=== PATIENT | female | born 1985 | race Caucasian/White ===

== ENCOUNTER → 2017-05-24 13:39 | Outpatient (CLI) | payer OTHER, SELFPAY | PROVIDERS: Family Provider Family Medicine; PCP Family Medicine; Visit Provider Internal Medicine Cardiovascular Disease | DX: I47.2 Ventricular tachycardia (principal); R00.2 Palpitations | CPT/HCPCS: 93225; 93226 ==

== ENCOUNTER 2017-06-06 13:23 | Emergency (ER) | payer OTHER, SELFPAY ==
[2017-06-06 13:25] VITALS: BP 157/95; PULSE 100; RESP 18; TEMP 36.8; O2SAT 100; BMI 29.0
--- NOTE | 2017-06-06 13:53 | RAD_ITS ---
STUDY: X-RAY CHEST REASON FOR EXAM: Female, 32 years old. Chest tightness TECHNIQUE: Single AP portable view of the chest. COMPARISON: 01/28/2013. FINDINGS: The lungs are clear and expanded. There is no demonstrated pleural abnormality. Normal size heart. Normal mediastinum and sharath. Normal visualized pulmonary arteries. Normal visualized aortic arch and descending thoracic aorta. Normal visualized thoracic spine. Normal visualized ribs, clavicles, and shoulders. There is no demonstrated abnormality of the visualized soft tissue structures of the upper abdomen. RAD/Chest 1 View (Portable) IMPRESSION: Normal x-ray examination of the chest. Electronically Signed: Chriss Wei MD at 14:14 EDT , Service support ,
--- NOTE | 2017-06-06 13:53 | EKG12_ITS ---
Test Reason : CP Blood Pressure : / mmHG Vent. Rate : 093 BPM Atrial Rate : 093 BPM P-R Int : 126 ms QRS Dur : 094 ms QT Int : 352 ms P-R-T Axes : 063 080 045 degrees QTc Int : 437 ms Normal sinus rhythm with sinus arrhythmia Normal ECG Confirmed by DELORES OCHOA ([id number]), story editor JONATHAN HUGGINS ([id number]) on 06/11/2017 2:47:43 PM Referred By: MADDIE Confirmed By:DELORES OCHOA
[2017-06-06] MEDS: Ketorolac 30 MG/ML Syringe IV (13:57)
--- NOTE | 2017-06-06 14:11 | ED.VISSUMM ---
- ER Visit Summary Date of Service: 06/06/17 Chief Complaint: Chest pain History of Present Illness: The patient is a 32 F who states that she is having intermittent second long inches in the center of her chest. She states that she has had some palpitations. She wore a Holter monitor. Review of this report demonstrates the patient had PVCs and a 3 beat run of SVT. Patient states that as she was driving she thinks she might of had a bit of a panic attack because she felt short of breath and found herself gripping the steering wheel hard. She notes she has had a viral URI with cough recently. She notes the chest is nontender to palpation nor is it worse with deep breathing. Physical Examination: Afebrile vital signs are stable Gen: Well-nourished well-developed Head: Normocephalic atraumatic Eyes: Perrl EOMI ENT: TMs clear no rhinorrhea moist mucous membranes Neck: Supple no lymphadenopathy no JVD nontender CVS: Regular rate rhythm no murmurs normal S1-S2 Respiratory: No distress clear to auscultation bilaterally chest nontender Abdomen: Soft nontender nondistended normal bowel sounds no masses Back: Nontender Extremity: Nontender no edema Skin: Normal color no rash Neuro: alert orientated ?3 CN II-XII intact normal strength sensation reflexes gait cerebellar Psych: Normal affect normal mood Test Results: EKG is a sinus rhythm at a rate of 93. Chest x-ray is negative. Emergency Department Course and Treatment: She was observed on the monitor. I believe that this is noncardiac and most likely chest wall related. Patient will be discharged home instructions for anti-inflammatory return if worsening. Impression: 1. Chest pain This note was generated with [employer] dictation software. It may contain incorrect words, spelling, and punctuation that were not noted in review of the chart prior to signing ED Disposition - Plan for ED Patient: Disposition: Home or Assisted Living Chief Complaint: Chest Pain Instructions: ED Chest Pain Atypical Unkn Cause Referrals: Khoa Carr III, MD [Primary Care Provider] - 1 Week if not improving
[2017-06-06 14:52] VITALS: BP 133/78; PULSE 77; RESP 16; O2SAT 97
[2017-06-06 15:01] VITALS: BP 120/66; PULSE 80; RESP 13; O2SAT 95
== END 2017-06-06 15:27 | disposition home or self-care (01) ==
PROVIDERS: Emergency Provider Emergency Medicine; Family Provider Family Medicine; PCP Family Medicine
DX: R07.9 Chest pain, unspecified (principal); R00.2 Palpitations; Z72.0 Tobacco use
CPT/HCPCS: 71045; 93005; 96374; 99283; A4216

== ENCOUNTER → 2017-07-26 15:29 | Outpatient (CLI) | payer OTHER, SELFPAY | PROVIDERS: Family Provider Family Medicine; PCP Family Medicine; Visit Provider Physician Assistant | DX: J02.9 Acute pharyngitis, unspecified (principal) | CPT/HCPCS: 87081 ==

== ENCOUNTER → 2017-09-05 17:57 | Outpatient (CLI) | payer OTHER, SELFPAY ==
[2017-09-05 17:59] LABS: Bacteria 0 SEEN /hpf (None Seen); Mucous, Urine 0 SEEN /hpf (<or=2+); Red Blood Cells-Urine 0 SEEN /hpf (0-5)
[2017-09-05 18:48] LABS: Color, Urine Yellow (Yellow); Glucose, Dipstick Normal (Normal); Ketone-Dipstick Negative (Negative); Leukocyte Esterase-Dipstick 100 /ul (Negative); Nitrite-Dipstick Negative (Negative); Occult Blood-Urine 150 /ul (Negative); Protein-Dipstick Negative (Negative); Specific Gravity, Urine 1.005 (1.002-1.030); Urine Bilirubin Dipstick Negative (Negative); Urine Clarity Clear (Clear); Urine Urobilinogen Normal (Normal)
[2017-09-05 18:57] LABS: Squamous Epithelial Cells - UA 0-5 SEEN /hpf (5-10); White Blood Cells 5-10 SEEN /hpf (0-5)
== END ==
PROVIDERS: Family Provider Family Medicine; PCP Family Medicine; Visit Provider Physician Assistant Medical
DX: R30.0 Dysuria (principal)
CPT/HCPCS: 81001; 87086; 87088; 87186

== ENCOUNTER → 2017-09-26 18:26 | Outpatient (CLI) | payer OTHER, SELFPAY ==
[2017-10-02 11:35] LABS: HPV APTIMA, High Risk Negative (Negative)
== END ==
PROVIDERS: Family Provider Family Medicine; PCP Family Medicine; Visit Provider Obstetrics & Gynecology
DX: Z12.4 Encounter for screening for malignant neoplasm of cervix (principal)
CPT/HCPCS: 88175; G0145

== ENCOUNTER → 2017-11-05 15:00 | Outpatient (CLI) | payer OTHER, SELFPAY ==
--- NOTE | 2017-11-05 15:04 | US_ITS ---
STUDY: RENAL ULTRASOUND - COMPLETE REASON FOR EXAM: Female, 32 years old. Recurrent uti TECHNIQUE: Ultrasound evaluation of the kidneys was performed with real-time and static simeon-scale imaging. COMPARISON: CT Abdomen/Pelvis Jan 19 2014 6:56am FINDINGS: RIGHT KIDNEY: Normal location of the right kidney, which is normal in size. The right kidney measures 14.1x5.2x6.1 cm. There is a normal cortex of the right kidney. The renal cortex measures 2.2 cm. There is no right renal mass or cyst. There are no right renal calculi. There is an extra-renal pelvis of the right kidney. There is no distention of the renal calyces. The diameter of the renal pelvis is 1.71cm. DISTAL RIGHT URETER: There is non-visualization of the distal right ureter. There is no demonstrated right ureterovesical junction calculus. There is a visualized right ureteral jet. LEFT KIDNEY: Normal location of the left kidney, which is normal in size. The left kidney measures 13.7x5.9x4.8 cm. There is a normal cortex of the left kidney. The renal cortex measures 1.2 cm. There is no left renal mass or cyst. There are no left renal calculi. There is an extra-renal pelvis of the left kidney. There is no distention of the renal calyces. The diameter of the renal pelvis is 1.07cm. DISTAL LEFT URETER: There is non-visualization of the distal left ureter. There is no demonstrated left ureterovesical junction calculus. There is a visualized left ureteral jet. BLADDER: The distended urinary bladder has a volume of 360 ml. The empty urinary bladder has a volume of 23 ml. There is a normal wall thickness of the distended urinary bladder. There is no demonstrated mass within the urinary bladder. There are no demonstrated bladder calculi. US/Kidney and Bladder IMPRESSION: There is an extra-renal pelvis of the left and right kidney. There is no distention of the renal calyces. Electronically Signed: Satya Sky MD at 16:51 EDT , Service support ,
== END ==
PROVIDERS: Family Provider Family Medicine; PCP Family Medicine; Visit Provider Urology
DX: N39.0 Urinary tract infection, site not specified (principal)
CPT/HCPCS: 76770

== ENCOUNTER → 2018-08-29 | Outpatient (CLI) | payer OTHER, SELFPAY ==
[2018-08-15 11:58] VITALS: BMI 28.0
--- NOTE | 2018-08-29 14:48 | ECHOD_ITS ---
Reason For Study: SOB Procedure This was a 2D Doppler, Color Flow transthoracic echocardiogram. Exam performed in department. Left Ventricle Normal LV size. Mid cavitary false tendon noted. Left ventricular systolic function is normal. The estimated ejection fraction is 65 %. Normal diastology for age. No regional wall motion abnormalities noted. Right Ventricle Normal RV size. Normal systolic function. Atria Normal left atrium. Normal right atrium. Mitral Valve Normal mitral valve. Tricuspid Valve Normal tricuspid valve. Aortic Valve Normal aortic valve. Trisinus/trileaflet aortic valve. Pulmonic Valve Normal pulmonic valve. Great Vessels Normal aortic root. The pulmonary artery is normal size. Normal inferior vena cava. Pericardium/Pleural No pericardial effusion. MMode/2D Measurements & Calculations LVIDd: 4.4 cm IVSd: 0.76 cm Ao root diam: 2.9 cm LVIDs: 2.8 cm LVPWd: 0.95 cm RVDd: 3.1 cm FS: 35.7 % LAV(MOD-bp): 38.2 ml LVAd ap4: 34.9 cm2 SV(MOD-sp4): 72.3 ml LAV(MOD-bp) Indexed: 20.3 ml/m2 EDV(MOD-sp4): 116.2 ml LAV(MOD-sp2): 43.0 ml EDV(sp4-el): 120.8 ml LAV(MOD-sp4): 33.3 ml LVAs ap4: 19.1 cm2 ESV(MOD-sp4): 43.9 ml ESV(sp4-el): 44.2 ml EF(MOD-sp4): 62.2 % EF(sp4-el): 63.4 % SV(sp4-el): 76.6 ml LA A4 area: 14.2 cm2 LA dimension(2D): 3.2 cm RA A4 area: 12.9 cm2 Time Measurements MV dec time: 0.30 sec Doppler Measurements & Calculations MV E max milton: 92.5 cm/sec Lat Peak E' Milton: 20.8 cm/sec Med Peak E' Milton: 15.0 cm/sec MV A max milton: 42.3 cm/sec E/E' lat: 4.5 E/E' med: 6.2 MV E/A: 2.2 Ao V2 max: 143.5 cm/sec LV V1 max: 148.8 cm/sec PA V2 max: 114.0 cm/sec Ao max P.2 mmHg LV V1 max P.9 mmHg TR max milton: 241.9 cm/sec TR max P.4 mmHg Interpretation Summary Normal LV size. Left ventricular systolic function is normal. The estimated ejection fraction is 65 %. Normal diastology for age. Structurally normal valves. Ordering Physician: MARC HOOD Referring Physician: KRUNAL HOOD Performed By: Blanche Barnes RDCS
== END | disposition home or self-care (01) ==
PROVIDERS: Family Provider Family Medicine; PCP Family Medicine
DX: R06.02 Shortness of breath (principal)
CPT/HCPCS: 93306

== ENCOUNTER → 2018-10-07 | Outpatient (CLI) | payer OTHER, SELFPAY ==
[2018-09-30 14:54] VITALS: BMI 28.0
[2018-10-07 12:42] LABS: Absolute Lymphocyte Count 4.14 X10^3/uL (0.83-4.51); Absolute Neutrophil Count 4.5 X10^3/uL (2.0-7.7); Basophil# 0.06 X10^3/uL; Basophil% 0.6 % (0-1); Eosinophil# 0.27 X10^3/uL; Eosinophils% 2.7 % (0-5); Hematocrit 44.2 % (37-47); Hemoglobin 14.3 g/dL (12.0-15.0); Lymphocyte # 4.14 X10^3/ul (4.0); Lymphocyte % 42.2 % (19-41); Mean Corp Hgb Conc 32.4 g/dL (32-36); Mean Corpuscular Hgb 27.6 pg (27.0-32.0); Mean Corpuscular Volume 85.2 fL (81-99); Mean Platelet Vol. 10.2 fl (6.2-12.0); Monocyte# 0.77 X10^3/uL; Monocyte% 7.8 % (0-10); NRBC Flagged by Analyzer 0 % (0-5); Neutrophil # 4.54 X10^3/uL (2.7-7.7); Neutrophil % 46.3 % (47-70); Platelet Count 379 K/mm3 (150-450); RBC Distribution Width CV 13.2 % (11.6-14.6); RBC Distribution Width SD 40.6 fl (35.1-43.9); Red Blood Count 5.19 M/mm3 (4.2-5.4); White Blood Count 9.8 K/mm3 (4.4-11.0)
[2018-10-07 13:17] LABS: T4 Free Direct 0.99 ng/dL (0.76-1.46); Thyroid Stim Hormone (TSH) 0.47 uIU/mL (0.358-3.74)
== END | disposition home or self-care (01) ==
LOC: LAB 11:57
PROVIDERS: Family Provider Family Medicine; PCP Family Medicine; Referring Provider Obstetrics & Gynecology; Visit Provider Obstetrics & Gynecology
DX: N93.9 Abnormal uterine and vaginal bleeding, unspecified (principal)
CPT/HCPCS: 36415; 84439; 84443; 85025

== ENCOUNTER → 2019-01-09 13:28 | Outpatient (CLI) | payer OTHER, SELFPAY ==
[2018-09-30 14:54] VITALS: BMI 28.0
== END ==
PROVIDERS: Family Provider Family Medicine; PCP Family Medicine; Referring Provider Urology; Visit Provider Urology
DX: N39.0 Urinary tract infection, site not specified (principal); R30.0 Dysuria
CPT/HCPCS: 87086; 87088; 87186

== ENCOUNTER → 2020-08-05 06:09 | Outpatient (CLI) | payer OTHER, SELFPAY ==
[2020-03-10 08:22] VITALS: BMI 28.8
[2020-08-05 08:16] LABS: Thyroid Stim Hormone (TSH) 1.17 uIU/mL (0.358-3.74)
[2020-08-05 10:15] LABS: T3 Total - Triiodothyronine 1.19 ng/mL (0.6-1.81); Vitamin D,25 Hydroxy 28.8 ng/mL
== END ==
PROVIDERS: PCP Nurse Practitioner Family; Referring Provider Nurse Practitioner Family; Visit Provider Nurse Practitioner Family
DX: R53.83 Other fatigue (principal)
CPT/HCPCS: 36415; 82306; 84439; 84443; 84480

== ENCOUNTER → 2021-08-30 | Outpatient (CLI) | payer OTHER, SELFPAY ==
--- NOTE | 2021-08-30 07:10 | BI_ITS ---
MAMMOGRAPHY - BILATERAL SCREENING REASON FOR EXAM: Female, 36 years old. Routine annual screening examination. PERTINENT HISTORY: Mother with breast cancer. TECHNIQUE: Digital bilateral breast marc (3D mammographic acquisition) in the CC and MLO projections. 2-D mediolateral oblique (MLO) and craniocaudad (CC) views of both breasts were obtained. CAD: Full Field Digital Mammography with Computer Added Detection was performed. COMPARISON: None. Baseline examination. FINDINGS: Breast Composition: The breasts are heterogeneously dense, which may obscure small masses. There are no dominant masses or suspicious calcifications. Small benign appearing bilateral axillary lymph nodes. No other significant abnormalities are identified. There has been no significant change since the prior study. BI/SCRN MAMM (CAD)W/MARC BILAT IMPRESSION: Stable bilateral screening mammogram. Yearly follow-up mammogram recommended. (A) ASSESSMENT CATEGORY: BIRADS Category 2: Benign. A letter regarding these results will be sent to the patient by the facility within 30 days. Approximately 10% of breast cancers are not detected by mammography. A normal mammogram should not delay biopsy of a clinically suspicious abnormality. [id number] Electronically Signed: Gavin Díaz MD at 9:40 EDT ,
== END | disposition home or self-care (01) ==
LOC: OPBI 07:08
PROVIDERS: PCP Nurse Practitioner Family; Visit Provider Nurse Practitioner Family
DX: Z12.31 Encounter for screening mammogram for malignant neoplasm of breast (principal)
CPT/HCPCS: 77063; 77067

== ENCOUNTER → 2022-03-22 | Outpatient (CLI) | payer OTHER, SELFPAY ==
[2022-03-30 17:23] LABS: HPV APTIMA, High Risk Negative (Negative)
== END | disposition home or self-care (01) ==
PROVIDERS: PCP Internal Medicine; Referring Provider Obstetrics & Gynecology; Visit Provider Obstetrics & Gynecology
DX: Z12.4 Encounter for screening for malignant neoplasm of cervix (principal)
CPT/HCPCS: 87624; 88175; G0145

== ENCOUNTER → 2022-04-11 | Outpatient (CLI) | payer OTHER, SELFPAY ==
[2022-04-11 12:44] LABS: Vitamin D,25 Hydroxy 82.7 ng/mL
== END | disposition home or self-care (01) ==
PROVIDERS: PCP Internal Medicine; Referring Provider Internal Medicine; Visit Provider Internal Medicine
DX: E55.9 Vitamin D deficiency, unspecified (principal)
CPT/HCPCS: 36415; 82306

== ENCOUNTER → 2022-06-21 | Outpatient (CLI) | payer OTHER, SELFPAY ==
--- NOTE | 2022-06-21 12:50 | US_ITS ---
STUDY: ULTRASOUND OF THE FEMALE PELVIS - COMPLETE REASON FOR EXAM: Female, 37 years old. Abnormal bleeding LMP: May 29, 2022. TECHNIQUE: Transabdominal and Transvaginal TECHNICAL QUALITY: Adequate. COMPARISON: None. FINDINGS: The uterus is anteverted and is in a midline position. The uterus measures 11.4 cm x 6.7 cm x 5.1 cm. There is a Nabothian cyst of the cervix. The endometrium measures 8 mm in thickness, and is heterogeneous (striated). There is no demonstrated endometrial mass. Heterogeneous appearance of the uterus although no focal fibroids are seen. This is suggestive of fibroid change. I.U.D. - The patient does not have an I.U.D. The right ovary is visualized. The right ovary measures 5.1 cm x 3.5 cm x 3.5 cm. There is no right ovarian cyst or ovarian mass. There is no visualized right adnexal mass or complex lesion. There is normal arterial and normal venous vascularity. The left ovary is visualized. The left ovary measures 1.7 cm Bard 2.1 cm x 1.8 cm. There is no left ovarian cyst or ovarian mass. There is no visualized left adnexal mass or complex lesion. There is normal arterial and normal venous vascularity. There is no fluid in the cul-de-sac. The pre void volume of the bladder was 477 ml. US/Pelvic w/ Transvaginal IMPRESSION: Normal female pelvis. Electronically Signed: Gavin Díaz MD at 15:40 EDT ,
== END | disposition home or self-care (01) ==
LOC: US 12:49
PROVIDERS: PCP Internal Medicine; Referring Provider Obstetrics & Gynecology; Visit Provider Obstetrics & Gynecology
DX: N93.9 Abnormal uterine and vaginal bleeding, unspecified (principal)
CPT/HCPCS: 76830; 76856

== ENCOUNTER → 2022-09-04 | Outpatient (CLI) | payer OTHER, SELFPAY ==
--- NOTE | 2022-09-04 07:29 | BI_ITS ---
MAMMOGRAPHY - BILATERAL SCREENING REASON FOR EXAM: Female, 37 years old. Routine annual screening examination. PERTINENT HISTORY: Mother with breast cancer. TECHNIQUE: Digital bilateral breast marc (3D mammographic acquisition) in the CC and MLO projections. 2-D mediolateral oblique (MLO) and craniocaudad (CC) views of both breasts were obtained. CAD: Full Field Digital Mammography with Computer Added Detection was performed. COMPARISON: Comparison is made with prior study dated August 30, 2021. FINDINGS: Breast Composition: The breasts are heterogeneously dense, which may obscure small masses. There are no dominant masses or suspicious calcifications. Stable small benign-appearing bilateral axillary lymph nodes. No other significant abnormalities are identified. There has been no significant change since the prior study. BI/SCRN MAMM (CAD)W/MARC BILAT IMPRESSION: Stable bilateral screening mammogram. Yearly follow-up mammogram recommended. (A) ASSESSMENT CATEGORY: BIRADS Category 2: Benign. A letter regarding these results will be sent to the patient by the facility within 30 days. Approximately 10% of breast cancers are not detected by mammography. A normal mammogram should not delay biopsy of a clinically suspicious abnormality. [id number] Electronically Signed: Gavin Díaz MD at 9:22 EDT ,
== END | disposition home or self-care (01) ==
LOC: OPBI 07:28
PROVIDERS: PCP Internal Medicine; Referring Provider Obstetrics & Gynecology; Visit Provider Obstetrics & Gynecology
DX: Z12.31 Encounter for screening mammogram for malignant neoplasm of breast (principal); Z80.3 Family history of malignant neoplasm of breast
CPT/HCPCS: 77063; 77067

== ENCOUNTER → 2022-09-26 | Outpatient (CLI) | payer OTHER, SELFPAY ==
--- NOTE | 2022-09-26 14:05 | EMB_PTH ---
PATIENT: HAMZAH FLOWER LOC: [facility] U#:[id number] AGE/SX: 37/F ROOM: RE09/26/[address]: SOLEDAD Evans : 1985 BED: DIS: 09/26/2022 SPEC #: [id number] RECD: 09/26/22 16:46 STATUS: PHILIP REDestinee #: [id number] MAGGIE: 09/26/22 14:[address]: Nadira Peck NP DEPT: SURGICAL PATHOLOGY RECD BY: Ana Paula Benjamin ENTERED: 09/27/22 07:30 SP TYPE: ENDOM BX/C ALFREDO DR: Dr. Marilin Del Valle MD Tissues: Endometrium, NOS Procedures: Surgery Specimen Level IV HEADER OPERATION: Endometrial biopsy PRE-OP DIAGNOSIS: Abnormal uterine bleeding TISSUE SUBMITTED: Endometrial tissue MICROSCOPIC DIAGNOSIS Endometrium, biopsy: Proliferative endometrium with minimal disorder and focal glandular breakdown. AM:reinaldo 09/28/2022 MICROSCOPIC DESCRIPTION Slides are reviewed. GROSS DESCRIPTION Received is one container labeled with the patient's name and not further designated. The specimen consists of multiple irregular fragments of light hicks soft tissue that in aggregate measure 3.0 x 2.0 x 0.1 cm. The specimen is totally submitted in one cassette. / AM:reinaldo 09/27/2022 TC:5 CPT: 48512
== END | disposition home or self-care (01) ==
LOC: LABSPEC 16:50
PROVIDERS: PCP Internal Medicine; Referring Provider Nurse Practitioner Women's Health; Visit Provider Nurse Practitioner Women's Health
DX: N93.9 Abnormal uterine and vaginal bleeding, unspecified (principal)
CPT/HCPCS: 88305

== ENCOUNTER → 2023-07-12 | Outpatient (CLI) | payer OTHER, SELFPAY ==
[2023-07-12 17:04] LABS: Absolute Lymphocyte Count 3.52 X10^3/uL (0.83-4.51); Absolute Neutrophil Count 5.7 X10^3/uL (2.0-7.7); Basophil# 0.06 X10^3/uL; Basophil% 0.6 % (0-1); Eosinophil# 0.21 X10^3/uL; Hematocrit 45.5 % (37-47); Hemoglobin 14.6 g/dL (12.0-15.0); Lymphocyte # 3.52 X10^3/ul (0.83-4.51); Lymphocyte % 33.8 % (19-41); Mean Corp Hgb Conc 32.1 g/dL (32-36); Mean Corpuscular Hgb 26.7 pg (27.0-32.0); Mean Corpuscular Volume 83.2 fL (81-99); Mean Platelet Vol. 9.8 fl (6.2-12.0); Monocyte# 0.88 X10^3/uL; Monocyte% 8.4 % (0-10); NRBC Flagged by Analyzer 0 % (0-5); Neutrophil # 5.72 X10^3/uL (2.7-7.7); Neutrophil % 54.9 % (47-70); Platelet Count 384 K/mm3 (150-450); RBC Distribution Width CV 12.8 % (11.6-14.6); RBC Distribution Width SD 38.6 fl (35.1-43.9); Red Blood Count 5.47 M/mm3 (4.2-5.4); White Blood Count 10.4 K/mm3 (4.4-11.0)
[2023-07-12 17:16] LABS: Prothrombin Time (Protime)PT. 12.8 SECONDS (11.7-14.9)
[2023-07-12 17:28] LABS: Erythrocyte Sedimentation Rate 7 mm/hr (0-30)
[2023-07-12 17:32] LABS: Amylase 50 U/L (25-115); CRP < 2.90 mg/L (0.0-3.0); Lipase 47 U/L (13-75)
[2023-07-16 14:11] LABS: Alpha-1-Globulins 0.3 g/dL (0.0-0.4); Alpha-2-Globulins 0.8 g/dL (0.4-1.0); Cytoplasmic Ab (C-ANCA) <1:20 titer (Neg:<1:20); Endomysial Antibody IgA Negative (Negative); Immunoglobulin A 89 mg/dL (87-352); Immunoglobulin G 1081 mg/dL (586-1602); Immunoglobulin M 137 mg/dL (26-217); PROEL- TOTAL PROTEIN 7.2 g/dL (6.0-8.5); Perinuclear Ab (P-ANCA) <1:20 titer (Neg:<1:20); t-Transglutaminase IgA <2 U/mL (0-3)
[2023-07-18 00:07] LABS: Anti-Centromere B Ab <0.2 AI (0.0-0.9); Anti-Chromatin <0.2 AI (0.0-0.9); Anti-Jo <0.2 AI (0.0-0.9); Anti-Scleroderma-70 AB <0.2 AI (0.0-0.9); Anti-dsDNA Ab <1 IU/mL (0-9); Beef <0.10 kU/L (Class 0); Chocolate <0.10 kU/L (Class 0); Codfish <0.10 kU/L (Class 0); Corn <0.10 kU/L (Class 0); Egg, Whole <0.10 kU/L (Class 0); Milk (Cow) <0.10 kU/L (Class 0); Mussels <0.10 kU/L (Class 0); Peanut <0.10 kU/L (Class 0); Pork <0.10 kU/L (Class 0); RNP Ab <0.2 AI (0.0-0.9); SJOGREN'S Anti-SS-A test < 0.2 AI (0.0-0.9); SJOGREN'S Anti-SS-B test < 0.2 AI (0.0-0.9); Salmon <0.10 kU/L (Class 0); Shrimp <0.10 kU/L (Class 0); Smith Ab <0.2 AI (0.0-0.9); Soybean <0.10 kU/L (Class 0); Tuna <0.10 kU/L (Class 0); Wheat <0.10 kU/L (Class 0)
== END | disposition home or self-care (01) ==
LOC: LAB 16:19
PROVIDERS: PCP Internal Medicine; Referring Provider Internal Medicine Gastroenterology; Visit Provider Internal Medicine Gastroenterology
DX: R10.9 Unspecified abdominal pain (principal)
CPT/HCPCS: 36415; 82150; 82784; 83516; 83690; 84165; 85025; 85610; 85652; 86003; 86005; 86140; 86225; 86235; 86255; 86256; 86334

== ENCOUNTER 2023-07-23 11:51 | Day surgery (SDC) | payer OTHER, SELFPAY ==
--- NOTE | 2023-07-23 | IMM_PTH ---
PATIENT: HAMZAH FLOWER LOC: [facility] U#:[id number] AGE/SX: 38/F ROOM: RE07/23/[address]: Dr. Michael Fox DO : 1985 BED: DIS: 07/23/2023 SPEC #: [id number] RECD: 07/25/23 12:04 STATUS: PHILIP REDestinee #: [id number] MAGGIE: 07/23/23 00:[address]: Michael Fox DEPT: IMMUNOHISTOCHEMISTRY RECD BY: Barrington Carpenter ENTERED: 07/25/23 12:04 SP TYPE: IMMUNO OTHR DR: Dr. Marilin Del Valle MD Tissues: Pancreas, NOS Procedures: P53 (initial) KI-67 (add) PHYSICIAN & INSTITUTION [place] [id number] SPECIMEN INFORMATION: Tissue Source: Pancreatic rest biopsy Clinical Info: Abdominal pain Specimen Number: [id number] CPT code: 74054,13998 METHODOLOGY: Deparaffinized sections of prefer/formalin-fixed tissue or PAP/DQ stained slides are incubated with monoclonal/polyclonal antibodies/oligonucleotide probes. Localization is made via biotin free immunoperoxidase method. Appropriate controls are performed and reacted as expected. Results on target cell population are indicated in the following table: RESULTS: ANTIBODY / CLONE RESULT P53 (DO-7) negative, null pattern Ki-67 (30-9) positive, low These tests were developed and their performance characteristics determined by [facility]. They may not have been cleared or approved by the U.S. Food and Drug Administration. The FDA has determined that such clearance or approval is not necessary. The above immunohistochemical/dualISH markers are ordered and reviewed by the Pathologist. INTERPRETATION: Pancreatic rest region, biopsy: No evidence of dysplasia. JULIO/ 07/26/2023
[2023-07-23 12:22] VITALS: BP 123/61; PULSE 71; RESP 16; TEMP 36.8; O2SAT 100; BMI 30.6
[2023-07-23] MEDS: Lactated Ringers 1,000 ML 15 ML IV (12:31)
--- NOTE | 2023-07-23 12:40 | NURSING ---
PT REFUSING URINE TEST AT THIS TIME, STATES HAD VASECTOMY. ORDER CANCELLED
--- NOTE | 2023-07-23 13:00 | EGD_PTH ---
PATIENT: HAMZAH FLOWER LOC: [facility] U#:[id number] AGE/SX: 38/F ROOM: RE07/23/[address]: Dr. Michael Fox DO : 1985 BED: DIS: 07/23/2023 SPEC #: [id number] RECD: 07/23/23 17:28 STATUS: PHILIP SALLIE #: [id number] MAGGIE: 07/23/23 13:[address]: Michael Fox DEPT: SURGICAL PATHOLOGY RECD BY: Ana Paula Benjamin ENTERED: 07/24/23 07:51 SP TYPE: EGD BIOPSY [facility] DR: Dr. Marilin Del Valle MD Tissues: Pancreas, NOS Procedures: Special Stain Group I Surgery Specimen Level IV Alcian Blue/PAS (control) HEADER OPERATION: EGD with biopsy PRE-OP DIAGNOSIS: Abdominal pain TISSUE SUBMITTED: Pancreatic rest biopsy MICROSCOPIC DIAGNOSIS Pancreatic rest, biopsy: Fragments of gastric mucosa with mild chronic inflammation. Focal intestinal metaplasia. No evidence of dysplasia. See comment. / 07/25/2023 COMMENT Immunohistochemistry ([id number]) for P53 and Ki-67 will be performed and results will be reported separately. Alcian blue/PAS stain with matched control supports the above diagnosis. MICROSCOPIC DESCRIPTION Slides are reviewed. GROSS DESCRIPTION Received in fixative is one container labeled with the patient's name and designated Pancreatic rest biopsy. The specimen consists of two irregular fragments of light hicks soft tissue that in aggregate measure 0.7 x 0.5 x 0.1 cm. The specimen is totally submitted in one cassette. / 07/24/2023 TC:3 CPT:12085
--- NOTE | 2023-07-23 13:30 | PCM.HP.BLA ---
History and Physical Date of Admission: 07/23/23 38 F who presents to the office today for initial consult. *BGI established 5.31.24 pt reports that for a few months she was experiencing a burning sensation in the pit of her stomach when she would drink alcohol or eat spicy food. Her PCP put her on Pantoprazole 40mg daily and has since noticed an improvement in symptoms. ROS Const Constitutional: No fatigue, fever(s) or weight change ENT ENT: No difficulty swallowing Gastro GI: Positive for bloating, heartburn and excessive flatus; No abdominal pain, belching, change in bowel habits, change in stool character, coffee ground emesis, constipation, cramping, diarrhea, difficulty swallowing, feeling full early, incontinent of stools, Vomiting blood/hematemesis, Blood in stool, loose stools, Black,tarry stools, nausea/dyspepsia, pain with swallowing, vomiting or other Musc Musculoskeletal: No joint pain Skin Skin: No yellowing of the eye or itchy eyes Psych Psychiatric: No anxiety and No depression Endo Endocrine: No fatigue or weight change Aller/Imm Allergy/Immunologic: No itchy eyes Ziggy/Lymp Hematologic/Lymphatic: No easy bleeding or easy bruising Exam Const General: cooperative and healthy appearing HENNY Head: normal to inspection Ears: hearing grossly normal bilaterally, TM's normal bilaterally and EAC's normal Nose: nasal discharge purulent Face and sinus: sinus tenderness frontal and maxillary Mouth: oral mucosae normal Throat: abnormal tonsil bilaterally erythema and hypertrophy 1+ and postnasal drainage Resp Effort & Inspection: normal respiratory effort Auscultation: Bilateral: Clear to Auscultation Cardio Palpation: normal PMI Rate: regular rate Rhythm: regular rhythm Neuro General: patient alert and CN's II-XI intact bilaterally Psych Appearance: grossly normal Mental Status: mental status grossly normal Assessment and Plan Assessment and Plan (1) Abdominal pain: Status: Acute Plan: The differential diagnosis for her abdominal pain does include peptic ulcer disease, H. pylori associated gastritis, celiac disease, pancreatitis. We will get an upper endoscopy to evaluate upper GI tract. Continue PPI therapy at this time. We will also get some biochemical profile including amylase, lipase, ESR, CRP, celiac disease profile, CBC and food allergy testing. Once we have biochemical workup and imaging along with endoscopy with biopsies hopefully will have a better idea regarding her diagnosis and treatment plan. Orders: Orders CBC W/Diff, Automated Today R10.9 - Unspecified abdominal pain Celiac Disease Profile Today R10.9 - Unspecified abdominal pain AGUSTIN + Protein Elect, Serum Today R10.9 - Unspecified abdominal pain ANCA Today R10.9 - Unspecified abdominal pain Erythrocyte Sed Rate Today R10.9 - Unspecified abdominal pain CRP Today R10.9 - Unspecified abdominal pain Amylase Today R10.9 - Unspecified abdominal pain Lipase Today R10.9 - Unspecified abdominal pain Allergen, Food Profile 14 Today R10.9 - Unspecified abdominal pain Prothrombin Time w/INR Today R10.9 - Unspecified abdominal pain VAMSI Comprehensive Panel Today R10.9 - Unspecified abdominal pain Abdomen/Pelvis WITH Contrast 1 Week R10.9 - Unspecified abdominal pain I have examined the patient and the H&P has been reviewed. There are no clinical changes since date of exam.
[2023-07-23 13:56] VITALS: BP 101/75; BP 123/61; PULSE 71; RESP 16; TEMP 36.3; O2SAT 98
[2023-07-23 14:00] VITALS: BP 107/55; BP 123/61; PULSE 80; RESP 16; O2SAT 99
[2023-07-23 14:05] VITALS: BP 123/61; BP 95/72; PULSE 68; RESP 16; O2SAT 99
--- NOTE | 2023-07-23 14:06 | OP.CCLET_ITS ---
07/23/2023 Marilin Del Valle Md Re : Upper GI endoscopy procedure for Liz Madera Dear Eligio This procedure was performed on Sunday, July 23, 2023. My impressions and recommendations are as follows: Impressions : - Normal esophagus. - A single lesion diagnostic of aberrant pancreas was found in the stomach. Biopsied. - No gross lesions in the first portion of the duodenum. Recommendations : - Discharge patient to home. - Resume previous diet. - Continue present medications. - Await pathology results. My findings are described in the full procedure note, which is enclosed. If I can be of further assistance, please feel free to contact me at . Sincerely, Michael Fox, 07/23/2023 2:06:07 PM This report has been signed electronically.
--- NOTE | 2023-07-23 14:06 | OP.EGD_ITS ---
Patient Name: Liz Madera Procedure Date: 07/23/2023 1:31 PM Date of : 1985 Age: 38 Procedure: Upper GI endoscopy Indications: Epigastric abdominal pain, Functional Dyspepsia Providers: Michael Fox DO Referring MD: Marilin Del Valle Md Medicines: Monitored Anesthesia Care Patient Profile: This is a 38 year old female. Refer to note in patient chart for documentation of history and physical. Patient has symptoms of chronic epigastric abdominal pain. Complications: No immediate complications. Procedure: Pre-Anesthesia Assessment: - Prior to the procedure, a History and Physical was performed, and patient medications and allergies were reviewed. The patient is competent. The risks and benefits of the procedure and the sedation options and risks were discussed with the patient. All questions were answered and informed consent was obtained. Patient identification and proposed procedure were verified by the physician in the pre-procedure area. Mental Status Examination: alert and oriented. Airway Examination: normal oropharyngeal airway and neck mobility. Respiratory Examination: clear to auscultation. CV Examination: normal. Prophylactic Antibiotics: The patient does not require prophylactic antibiotics. Prior Anticoagulants: The patient has taken no anticoagulant or antiplatelet agents. ASA Grade Assessment: III - A patient with severe systemic disease. After reviewing the risks and benefits, the patient was deemed in satisfactory condition to undergo the procedure. The anesthesia plan was to use monitored anesthesia care (MAC). Immediately prior to administration of medications, the patient was re-assessed for adequacy to receive sedatives. The heart rate, respiratory rate, oxygen saturations, blood pressure, adequacy of pulmonary ventilation, and response to care were monitored throughout the procedure. The physical status of the patient was re-assessed after the procedure. After obtaining informed consent, the endoscope was passed under direct vision. Throughout the procedure, the patient's blood pressure, pulse, and oxygen saturations were monitored continuously. The gastroscope was introduced through the mouth, and advanced to the second part of duodenum. The upper GI endoscopy was accomplished without difficulty. The patient tolerated the procedure well. Scope In: 1:39:43 PM Scope Out: 1:44:50 PM Total Procedure Duration Time 0 hours 5 minutes 7 seconds Findings: The examined esophagus was normal. A single umbilicated lesion measuring 9 mm in diameter was found in the gastric antrum. Biopsies were taken with a cold forceps for histology. The pathology specimen was placed into Bottle Number 1. Estimated blood loss was minimal. No gross lesions were noted in the first portion of the duodenum. Impression: - Normal esophagus. - A single lesion diagnostic of aberrant pancreas was found in the stomach. Biopsied. - No gross lesions in the first portion of the duodenum. Recommendation: - Discharge patient to home. - Resume previous diet. - Continue present medications. - Await pathology results. Procedure Code(s): --- Professional --- 87671, Esophagogastroduodenoscopy, flexible, transoral; with biopsy, single or multiple CPT copyright 2021 [employer]. All rights reserved. The codes documented in this report are preliminary and upon label coder review may be revised to meet current compliance requirements. Michael Fox DO 07/23/2023 2:06:07 PM This report has been signed electronically. Number of Addenda: 0 Note Initiated On: 07/23/2023 1:31 PM
[2023-07-23 14:10] VITALS: BP 107/66; BP 123/61; PULSE 65; RESP 16; TEMP 36.1; O2SAT 98
[2023-07-23 14:36] VITALS: BP 123/61
== END 2023-07-23 14:39 | disposition home or self-care (01) ==
LOC: EN 11:51 → AC 11:52
PROVIDERS: PCP Internal Medicine; Referring Provider Internal Medicine; Visit Provider Internal Medicine Gastroenterology
PROC: 0DJ08ZZ Inspection of Upper Intestinal Tract, Via Natural or Artificial Opening Endoscopic (ICD-10-PCS; CPT 43235; principal; 2023-07-23 12:55)
DX: K31.A19 Gastric intestinal metaplasia without dysplasia, unspecified site (principal); Z79.899 Other long term (current) drug therapy; K29.50 Unspecified chronic gastritis without bleeding; K86.89 Other specified diseases of pancreas
CPT/HCPCS: 43239; 88305; 88312; 88341; 88342; J7120; J2405

== ENCOUNTER → 2023-09-06 | Outpatient (CLI) | payer OTHER, SELFPAY ==
--- NOTE | 2023-09-06 07:14 | BI_ITS ---
MAMMOGRAPHY - BILATERAL SCREENING REASON FOR EXAM: Female, 38 years old. Routine annual screening examination. PERTINENT HISTORY: Mother with breast cancer. TECHNIQUE: Digital bilateral breast marc (3D mammographic acquisition) in the CC and MLO projections. 2-D mediolateral oblique (MLO) and craniocaudad (CC) views of both breasts were obtained. CAD: Full Field Digital Mammography with Computer Added Detection was performed. COMPARISON: Comparison is made with prior study dated September 04, 2022 and August 30, 2021. FINDINGS: Breast Composition: The breasts are heterogeneously dense, which may obscure small masses. There are no dominant masses or suspicious calcifications. Stable small bilateral benign-appearing axillary lymph nodes. No other significant abnormalities are identified. There has been no significant change since the prior study. BI/SCRN MAMM (CAD)W/MARC BILAT IMPRESSION: Stable bilateral screening mammogram. Yearly follow-up mammogram recommended. (A) ASSESSMENT CATEGORY: BIRADS Category 2: Benign. A letter regarding these results will be sent to the patient by the facility within 30 days. Approximately 10% of breast cancers are not detected by mammography. A normal mammogram should not delay biopsy of a clinically suspicious abnormality. [id number] Electronically Signed: Gavin Díaz MD at 8:25 EDT ,
== END | disposition home or self-care (01) ==
LOC: OPBI 07:13
PROVIDERS: PCP Internal Medicine; Referring Provider Obstetrics & Gynecology; Visit Provider Obstetrics & Gynecology
DX: Z12.31 Encounter for screening mammogram for malignant neoplasm of breast (principal); Z80.3 Family history of malignant neoplasm of breast
CPT/HCPCS: 77063; 77067

== ENCOUNTER 2024-01-06 09:00 | Outpatient (RCR) | payer OTHER, SELFPAY ==
--- NOTE | 2023-10-25 16:02 | HP.PTEVAL ---
Patient's Visit Information Visit Information Visit Information: HAMZAH FLOWER is a 38 year old F referred to Physical Therapy by LUPILLO Burgess with a diagnosis of BACK PAIN. Date of Evaluation: 10/25/23 Physical Therapist: Loida Liu PT, Cert MDT Visit Plan Frequency: 2-3x /Week Duration: 4-6 Weeks Plan: *NO ULTRASOUND OR ELECTRICAL STIMULATION* AQUATIC THERAPY FOR PAIN RELIEF AND DLS STARTING WITH A NEUTRAL SPINE. ANTERIOR PELVIC TILT POSTURE CORRECTION TRAINING FOR STANDING AND WALKING ACTIVITIES. INSTRUCTION IN APPROPRIATE BODY MECHANICS WITH NEUTRAL SPINE TO AVOID BENDING AND TWISTING WITH WORK ACTIVITIES AND ADL'S. KASIA LE ROM, STRETCHING AND STRENGTHENING. HEP INSTRUCTION. 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 HOBBIES: WALKS OUTSIDE ABOUT 5 DAYS A WEEK 15 TO 30 MIN. Disability: NO Present symptoms: R LOW BACK PAIN WITH INTERMITTENT R ANTERIOR HIP PAIN. Present since: ABOUT 2 WKS AGO Pain Scale: WORST 4/10, LEAST 0/10 Currently: 0/10 Is it getting better, worse or staying the same: GETTING BETTER Commenced as a result of: NO APPARENT REASON BUT WAS CROUCHED DOWN CLEANING THE FLOORS AND REACHING AND ALSO CARRYING LAUNDRY BASKETS UP 2 FLIGHTS OF STAIRS X 3 AT HOME THEN FOLDING LAUNDRY ON BED THE NEXT DAY WHEN FELT THE PAIN FOR THE FIRST TIME. Symptoms at onset: R LBP Worse: SITTING, INTERMITTENT ANTERIOR R HIP PAIN WITH STEPPING, AT FIRST EVERYTHING MADE IT HURT BUT HASN'T HURT MUCH TODAY. LIFTING, TWISTING Better: CHANGE OF POSITION, IBUPROFEN, PRDNISONE, FLEXERIL AT NIGHT TO SLEEP, ICE, OTC PAIN PATCH, Disturbed sleep: LAST NIGHT WAS NORMAL BUT NIGHT BEFORE WAS RESTLESS AND LOW BACK WAS SORE. Previous history/Previous treatment: HURT BACK WORKING AT [employer] AGE 19 - MUSCLE STRAIN - FULL RECOVERY WITH SOME PT. 13 AND 8 YEAR OLDS BY . DOES NOT EXERCISE. Treatment this episode: FLEXERIL AND FLEXERIL PLUS OTC MEDS AND SELF CARE. *TOMORROW IS LAST DOSE OF PREDNISONE* Coughing/sneezing/straining: LAST WEEK EFFECTED PAIN BUT NOT THIS WEEK. Gait: SLOWER PACE AND NOT WIDE OF A STEP. INTERMITTENT PAIN IN FRONT OF R HIP WHEN STEPPING WITH R FOOT. Bowel or Bladder Dysfunction: NO Accidents: NO Unexplained weight loss: NO Imaging: NO PMH/Recent major surgery: ECTOPIC PANCREASE - UNDER EXAM/DIAGNOSIS CURRENTLY. Objective Objective: Sitting/Standing Posture: ANTERIOR PELVIC TILT IN STANDING. NO RELEVANT LATERAL LUMBAR SHIFT. MINDFUL OF SITTING POSTURE BUT GUARDED. Other Observations: INDEP GAIT INTO PT WITH DECREASED CADANCE AND DECREASED KASIA STRIDE LENGTH. SYMMETRICAL WEIGHT BEARING. Sensory deficit: KASIA LE LIGHT TOUCH SENSATION GROSSLY INTACT AND SYMMETRICAL ROM deficit: MILD KASIA LE HIP FLEXOR AND HS TIGHTNESS. Motor deficit: R HIP 4/5, KNEE 5/5, ANKLE 5/5. L HIP 4/5, KNEE 5/5. ANKLE 5/5. Reflexes: R QUAD 2+, R ACHILLES 2+. L QUAD 2+, L ACHILLES 2+ Dural Signs: NEGATIVE KASIA LE DURAL SIGNS Lumbar mvmt loss: flex - MIN - INCREASES - NW ext - MOD - INCREASES - NW - GOOD MECHANICAL RESPONSE AND THEN FLEX GETS BETTER AND DOES NOT INCREASE. R SG - MIN - P LBP - NW L SG - MOD - P R LBP - W Core strength: FAIR Palpation: NO ACUTE LUMBAR TENDERNESS. TREATMENT: NEUROMUSCULAR REEDUCATION - RETRAINING OF MVMT AND POSTURE FOR SITTING, LYING AND STANDING ACTIVITIES. Balance/Special Test Scores Oswestry Low Back Score: 9 Goals Goal 1:: DECREASE C/O R LOW BACK AND HIP PAIN BY AT LEAST 75% TO EASE ADL'S. Goal 2:: IMPROVE PERSONAL CARE, LIFTING, SLEEP, SOCIAL LIFE AND TRAVEL FUNCTION TO [facility]. Goal 3:: INSTRUCT IN PROPHYLAXIS Rehabilitation Potential Physical Therapy Diagnosis: CORE AND LE WEAKNESS AND STIFFNESS ALONG WITH PAIN LIMITING ADL FUNCTION. Rehabilitation Potential: Good Anticipated Interventions Patient/Client Instruction: Educate patient on: Condition, Plan of Care and Risk Factors For the Purpose of:: To improve self management Therapeutic Exercise to Include: Strength training, Body mechanics, Postural training, Flexibilty training, Neuromotor development, In an aquatic setting and Dynamic Lumbar Stabilization For the Purpose of:: To decrease pain, To improve muscle performance and motor function, To increase tolerance to activity/condition/position, To improve ability of physical actions for home/community/work/leisure and To improve self management Manual Therapy Techniques to Include: Trigger point massage, Mobilization, Functional dry needling and Soft tissue mobilization For the Purpose of:: To decrease pain, To improve nutrient delivery to tissue and To improve muscle performance and motor function Cryotherapy (ice pack, ice massage): Yes Thermo therapy (hot pack): Yes For the Purpose of:: To decrease pain, To improve nutrient delivery to tissue and To improve muscle performance and motor function Text: Thank you for the opportunity to evaluate your patient. For Medicare and Medicare HMO plans, please review the plan of care and approve it. It will need to be FAXED BACK to us at [phone] for Medicare purposes. For Medicare only, by signing this I certify the plan of care. Please let me know if there are questions or concerns regarding this plan of care. Physician Signature: Date:
--- NOTE | 2023-12-09 19:55 | HP.PTREVAL ---
Re-Evaluation Intro: LUPILLO Burgess, It has been my pleasure to treat HAMZAH FLOWER over the last 10 visits for BACK PAIN. Please see the progress note below for an update on the physical therapy plan of care! Subjective Subjective: I DON'T HAVE CONSTANT PAIN ANYMORE. IT ISN'T ANYTHING LIKE IT WAS WHEN I STARTED . PATIENT REPORTS ALL OF HER ADL'S ARE GOING BETTER. SHE STATES SHE CAN TRANSFER BETTER, CARRY LAUNDRY BASKETS, AND VACUUM FLOORS BETTER. PATIENT REPORTS FREQUENT CHANGE OF POSITION TO AVOID PAIN THOUGH. SHE STILL GETS PAIN WITH ACTIVITIES THAT INVOLVE BENDING LIKE SHAVING HER LEGS. CROSSING HER LEGS IN SITTING STILL PROVOKES PAIN IF DONE TOO LONG ALSO. Objective Objective/Function: THIS PATIENT WAS SEEN TODAY FOR RE-ASSESSMENT OF PROGRESS TOWARD THE SET PT GOALS AND THE NEED FOR FURTHER PHYSICAL THERAPY VS READINESS FOR DISCHARGE. SHE HAS MADE GOOD PROGRESS WITH AQUATIC THERAPY AND IS A GOOD CANDIDATE TO CONTINUE PT TO TRY TO PROGRESS TO LAND AND BACK TO PLOF PAINFREE. UPON EXAM TODAY: Lumbar mvmt loss: flex - NIL - NE ext - MOD - NE R SG - NIL - NE L SG - MIN - P R LBP - W BRIEFLY. CORE STRENGTH: FAIR OTHER: PATIENTS GAIT AND TRANSFERS REMAIN GUARDED AND PAIN WAS EASILY PRODUCED WITH L SG TESTING. SHE STILL HAS CORE WEAKNESS AND WOULD BENEFIT FROM STRENGTH PROGRESSION AND TRAINING. Plan Plan Plan: TRANSITION TO LAND FROM AQUATIC THERAPY 2X'S A WK X 4-6 WKS. EXTENSION BIAS TREATMENT WITH R LATERAL COMPONENT. POSTURE CORRECTION/STRENGTHENING, INSTRUCTION IN APPROPRIATE BODY MECHANICS AND ACTIVITY MODIFICATIONS. DLS STARTING WITH A NEUTRAL SPINE PROGRESSING ROM TOLERATED. KASIA LE ROM, STRETCHING AND STRENGTHENING. HEP INSTRUCTION. Goals Goals Goal 1:: DECREASE C/O R LOW BACK AND HIP PAIN BY AT LEAST 75% TO EASE ADL'S. Goal Progress: Goal Met Goal 2:: IMPROVE PERSONAL CARE, LIFTING, SLEEP, SOCIAL LIFE AND TRAVEL FUNCTION TO PLOF. Goal Progress: Progressing Goal 3:: INSTRUCT IN PROPHYLAXIS Goal Progress: Progressing Anticipated Interventions Anticipated Interventions Patient/Client Instruction: Educate patient on: Condition, Plan of Care and Risk Factors For the Purpose of:: To improve self management Therapeutic Exercise to Include: Strength training, Body mechanics, Postural training, Flexibilty training, Neuromotor development, In an aquatic setting and Dynamic Lumbar Stabilization For the Purpose of:: To decrease pain, To improve muscle performance and motor function, To increase tolerance to activity/condition/position, To improve ability of physical actions for home/community/work/leisure and To improve self management Manual Therapy Techniques to Include: Trigger point massage, Mobilization, Functional dry needling and Soft tissue mobilization For the Purpose of:: To decrease pain, To improve nutrient delivery to tissue and To improve muscle performance and motor function Cryotherapy (ice pack, ice massage): Yes Thermo therapy (hot pack): Yes For the Purpose of:: To decrease pain, To improve nutrient delivery to tissue and To improve muscle performance and motor function Re-Evaluation Ending Re-evaluation ending: Please do not hesitate to contact me at [phone] by phone or if you have questions or concerns regarding this new plan of care! Sincerely, Loida Liu, PT, Cert MDT
--- NOTE | 2024-01-06 10:47 | HP.PTDCSUM ---
Discharge Summary D/C summary: It has been my pleasure to treat HAMZAH FLOWER referred by LUPILLO Burgess, with the diagnosis of BACK PAIN for a total of 17 visit(s). Discharge Date: 01/06/24 Please see the following information for a summary of their discharge status. Subjective Subjective: PATIENT REPORTS SHE THINKS HER CORE IS STRONGER THAN IT WAS BEFORE SHE STARTED PT. SHE Pain LBP: Pain Intensity (Out of 10): 2 Overall Improvement % Improvement: 100 Objective Objective/Function: THIS PATIENT WAS SEEN TODAY FOR RE-ASSESSMENT OF PROGRESS TOWARD THE SET PT GOALS AND THE NEED FOR FURTHER PHYSICAL THERAPY VS READINESS FOR DISCHARGE. ALL GOALS MET. UPON EXAM TODAY: Lumbar mvmt loss: flex - NIL - NE ext - MIN - NE R SG - NIL - NE L SG - NIL - NE CORE STRENGTH: GOOD OTHER: INDEP GAIT AND TRANSFERS. GOOD POSTURE CONTROL AND GOOD BODY MECHANCICS DEMO'D. Goals Goal 1:: DECREASE C/O R LOW BACK AND HIP PAIN BY AT LEAST 75% TO EASE ADL'S. Goal Progress: Goal Met Goal 2:: IMPROVE PERSONAL CARE, LIFTING, SLEEP, SOCIAL LIFE AND TRAVEL FUNCTION TO [facility]. Goal Progress: Goal Met Goal 3:: INSTRUCT IN PROPHYLAXIS Goal Progress: Goal Met Plan Plan: D/C D/C Information d/c sentence: If there are questions or concerns regarding this patient's physical therapy, please feel free to call me at [phone]. Thank you for the referral of this patient. Sincerely, Loida Liu, PT, Cert MDT Balance/Gait/Functional tests Balance/Special Test Scores Oswestry Low Back Score: 0 Improvement % Improvement: 100
== END 2024-01-06 19:00 | disposition home or self-care (01) ==
LOC: PT 09:00
PROVIDERS: PCP Internal Medicine; Referring Provider Physician Assistant; Visit Provider Physician Assistant
DX: S39.012D Strain of muscle, fascia and tendon of lower back, subsequent encounter (principal)
CPT/HCPCS: 97110; 97112; 97113; 97162; 97530

== ENCOUNTER → 2024-06-04 | Outpatient (CLI) | payer OTHER, SELFPAY ==
[2024-06-04 07:32] LABS: Basophil# 0.05 X10^3/uL; Basophil% 0.6 % (0-1); Eosinophil# 0.21 X10^3/uL; Eosinophils% 2.6 % (0-5); Hematocrit 45.3 % (37-47); Hemoglobin 14.8 g/dL (12.0-15.0); Lymphocyte % 40.3 % (19-41); Mean Corp Hgb Conc 32.7 g/dL (32-36); Mean Corpuscular Hgb 27.1 pg (27.0-32.0); Mean Corpuscular Volume 82.8 fL (81-99); Mean Platelet Vol. 9.9 fl (6.2-12.0); Monocyte# 0.65 X10^3/uL; Monocyte% 7.9 % (0-10); NRBC Flagged by Analyzer 0 % (0-5); Neutrophil # 3.96 X10^3/uL (2.7-7.7); Neutrophil % 48.4 % (47-70); Platelet Count 361 K/mm3 (150-450); RBC Distribution Width CV 12.8 % (11.6-14.6); RBC Distribution Width SD 38.8 fl (35.1-43.9); Red Blood Count 5.47 M/mm3 (4.2-5.4); White Blood Count 8.2 K/mm3 (4.4-11.0)
[2024-06-04 08:05] LABS: ALB/GLOB Ratio 1.5 RATIO (0.9-2.4); AST(SGOT) 24 U/L (<=31); Alanine Aminotransfer ALT/SGPT 29 U/L (<=34); Albumin, Serum 4.4 g/dL (3.5-5.0); Alkaline Phosphatase 59 U/L (35-104); Anion Gap 12 (5-15); BUN 13 mg/dL (4-19); BUN/Creat Ratio 12.9 RATIO (10-20); Calcium,Total 9.4 mg/dL (7.6-11.0); Carbon Dioxide 22.4 mmol/L (21.0-32.0); Chloride 105 mmol/L (98-108); Cholesterol 233 mg/dL (<=200); EST Glomerular Filtration Rate 74 (>60); Globulin 2.9 g/dL (2.2-4.2); Glucose 94 mg/dL (70-99); High Density Lipoprotein 46 mg/dL; Low Density Lipoprotein Calc. 139 mg/dL; Protein, Total 7.3 g/dL (5.9-8.4); Sodium Level 139 mmol/L (133-145); Total Bilirubin 0.47 mg/dL (0.00-1.30); Triglycerides 240 mg/dL; Very Low Density Lipoprotein 48 mg/dL (5-40); cholesterol:hdl ratio screen 5.04
[2024-06-04 08:09] LABS: Vitamin D,25 Hydroxy 68.1 ng/mL (30-100)
== END | disposition home or self-care (01) ==
LOC: LAB 06:49
PROVIDERS: PCP Internal Medicine; Referring Provider Nurse Practitioner Family; Visit Provider Nurse Practitioner Family
DX: N92.6 Irregular menstruation, unspecified (principal); Z13.29 Encounter for screening for other suspected endocrine disorder
CPT/HCPCS: 36415; 80053; 80061; 82306; 84439; 84443; 85025

== ENCOUNTER → 2024-09-07 | Outpatient (CLI) | payer OTHER, SELFPAY ==
--- NOTE | 2024-09-07 12:15 | BI_ITS ---
EXAM: SCRN MAMM (CAD)W/MARC BILAT DATE: 09/07/2024 CLINICAL HISTORY: F, Age 39 y/o , SCREENING FOR BREAST CANCER History of mother with breast cancer. TECHNIQUE: SCRN MAMM (CAD)W/MARC BILAT COMPARISON: Prior exam(s) dated September 06, 2023.. FINDINGS: TISSUE DENSITY: The breasts are heterogeneously dense, which may obscure small masses. Bilateral Breast Mammographic Findings: No significant masses, calcifications or other abnormalities are identified. Stable small bilateral axillary lymph nodes. No suspicious masses, areas of developing architectural distortion, or suspicious calcifications. There has been no significant interval change. BI/SCRN MAMM (CAD)W/MARC BILAT IMPRESSION: Stable examination. OVERALL FINAL ASSESSMENT BI-RADS 2: BENIGN RECOMMENDATION: Routine annual follow-up in 1 Year A letter with findings and recommendations will be mailed to the patient. Reading Location: [id number]
== END | disposition home or self-care (01) ==
LOC: OPBI 12:14
PROVIDERS: PCP Internal Medicine; Referring Provider Nurse Practitioner Family; Visit Provider Nurse Practitioner Family
DX: Z12.31 Encounter for screening mammogram for malignant neoplasm of breast (principal); Z80.3 Family history of malignant neoplasm of breast
CPT/HCPCS: 77063; 77067

== ENCOUNTER → 2025-01-14 | Outpatient (CLI) | payer OTHER, SELFPAY ==
--- NOTE | 2025-01-14 09:09 | RAD_ITS ---
PROCEDURE: CHEST PA AND LATERAL 01/14/2025 REASON FOR EXAM: CHRONIC COUGH TECHNIQUE: Procedure Code: RADCXR Modality: DX Procedure: CHEST PA AND LATERAL COMPARISON: None FINDINGS: Heart size and mediastinal configuration are within normal limits. There is no focal infiltrate or consolidation. There is no pneumothorax or effusion. There is no acute bony abnormality. There is no visible atherosclerosis. RAD/Chest PA and Lateral IMPRESSION: No acute process is identified in the chest. Reading Location: [id number]
== END | disposition home or self-care (01) ==
LOC: RAD 09:08
PROVIDERS: PCP Internal Medicine; Referring Provider Internal Medicine; Visit Provider Internal Medicine
DX: R05.3 Chronic cough (principal)
CPT/HCPCS: 71046